=== PATIENT | female | born 1970 | race Caucasian/White ===

== ENCOUNTER 2018-06-28 04:18 | Emergency (ER) | payer MEDICAID ==
[~2018-06-28] VITALS: Ht 172.7 cm; Wt 77.0 kg
[2018-06-28] MEDS ORDERED: ONDANSETRON HCL 4MG/2ML INJ IV STA ×2 (06:45→07:47)
[2018-06-28] MEDS ORDERED: SODIUM CHLORIDE 0.9% 1,000 ML IV ONE (06:45)
[2018-06-28] MEDS ORDERED: KETOROLAC 30MG/ML VIAL IV STA (06:45)
[2018-06-28 07:00] LABS: HEMATOCRIT. 42.9 % (36.0-48.0); HEMOGLOBIN. 14.7 g/dL (12.0-16.0); MEAN CORPUSCULAR HEMOGLOBIN 29.6 pg (28.0-32.0); MEAN CORPUSCULAR VOLUME 86.4 fL (81.0-99.0); MEAN PLATELET VOLUME 9.3 fl (7.4-10.4); PLATELET 288 x1000/uL (130-400); RED BLOOD CELL COUNT 4.97 mill/uL (4.2-5.4); RED CELL DISTRIBUTION WIDTH 12.9 % (11.6-14.6)
[2018-06-28 07:04] LABS: CHLORIDE 101 mEq/L (98-107)
[2018-06-28 07:05] LABS: PROTHROMBIN TIME 10.2 sec (9.6-11.0)
[2018-06-28 07:07] LABS: ETHANOL BLOOD < 10 mg/dL
[2018-06-28 07:39] LABS: PLATELET ESTIMATE NORMAL
[2018-06-28 07:57] LABS: HCG SCREEN NEGATIVE
[2018-06-28] MEDS ORDERED: POTASSIUM CHLORIDE 20MEQ TABLET SR PO ONE (08:00)
[2018-06-28] MEDS ORDERED: KCL 10MEQ/50ML PREMIX 50 ML IV ONE (08:00)
[2018-06-28 08:03] LABS: CLARITY URINE CLEAR (CLEAR); COLOR URINE YELLOW (YELLOW); KETONES URINE TRACE (NEGATIVE); LEUKOCYTE ESTERASE URINE NEGATIVE (NEGATIVE); NITRITE URINE NEGATIVE (NEGATIVE); OCCULT BLOOD URINE NEGATIVE (NEGATIVE); PROTEIN URINE NEGATIVE (NEGATIVE); UROBILINOGEN URINE 0.2 E.U./dL (0.2-1.0)
[2018-06-28] MEDS ORDERED: IOHEXOL-300 100 ML BOTTLE ONE (10:36)
[2018-06-28 11:17] LABS: CHLORIDE 105 mEq/L (98-107)
[2018-06-28 14:47] VITALS: BP 120/83
[2018-07-03 05:21] LABS: CHLAMYDIA TRACHOMATIS NAA Negative (Negative); NEISSERIA GONORRHOEAE NAA Negative (Negative)
== END 2018-06-28 14:47 | disposition home or self-care (01) ==
LOC: ER 04:18
DX: R10.31 Right lower quadrant pain (principal); I10 Essential (primary) hypertension
CPT/HCPCS: 36415; 71045; 74177; 76830; 76856; 80048; 80053; 80320; 81003; 81025; 83690; 83735; 84703; 85025; 85610; 87040; 87086; 87210; 87491; 87591; 93005; 96361; 96365; 96375; 96376; 99284; J1885; J2405; J3480; J7030; Q9967; Z7610; 96374; G0480

== ENCOUNTER 2019-05-01 22:24 | Inpatient (IN) | payer MEDICAID, OTHER ==
[~2019-05-01] VITALS: Ht 167.6 cm; Wt 90.7 kg
[2019-05-01] MEDS ORDERED: SODIUM CHLORIDE 0.9% 500 ML IV ONE (23:36)
[2019-05-02 00:06] LABS: CLARITY URINE CLEAR (CLEAR); COLOR URINE YELLOW (YELLOW); KETONES URINE NEGATIVE (NEGATIVE); LEUKOCYTE ESTERASE URINE NEGATIVE (NEGATIVE); NITRITE URINE NEGATIVE (NEGATIVE); OCCULT BLOOD URINE NEGATIVE (NEGATIVE); PH URINE 7.5 (4.5-8.0); PROTEIN URINE NEGATIVE (NEGATIVE); SPECIFIC GRAVITY URINE 1.014 (1.005-1.030); UROBILINOGEN URINE 0.2 E.U./dL (0.2-1.0)
[2019-05-02 00:12] LABS: BASOPHILS % 0.9 % (0.0-2.0); EOSINOPHILS % 3.1 % (0.0-5.0); HEMATOCRIT. 43.1 % (36.0-48.0); HEMOGLOBIN. 14.8 g/dL (12.0-16.0); LYMPHOCYTES % 18.1 % (20.0-50.0); MEAN CORPUSCULAR HEMOGLOBIN 30.4 pg (28.0-32.0); MEAN CORPUSCULAR VOLUME 88.7 fL (81.0-99.0); MEAN PLATELET VOLUME 9.3 fl (7.4-10.4); MONOCYTES % 5.8 % (2.0-8.0); NEUTROPHILS % 72.1 % (40.0-76.0); PLATELET 312 x1000/uL (130-400); RED BLOOD CELL COUNT 4.86 mill/uL (4.2-5.4); RED CELL DISTRIBUTION WIDTH 12.9 % (11.6-14.6)
[2019-05-02 00:18] LABS: CHLORIDE 101 mEq/L (98-107)
[2019-05-02 00:22] LABS: ETHANOL BLOOD < 10 mg/dL
[2019-05-02 00:34] LABS: *BARBITURATES SCREEN URINE NEGATIVE (NEGATIVE)
[2019-05-02 00:35] LABS: *AMPHETAMINES SCREEN URINE NEGATIVE (NEGATIVE); *BENZODIAZEPINES SCREEN URINE NEGATIVE (NEGATIVE); *COCAINE SCREEN URINE NEGATIVE (NEGATIVE); METHADONE URINE SCREEN NEGATIVE (NEGATIVE)
[2019-05-02 00:36] LABS: CANNABINOID URINE SCREEN NEGATIVE (NEGATIVE); PHENCYCLIDINE URINE SCREEN NEGATIVE (NEGATIVE)
[2019-05-02] MEDS ORDERED: POTASSIUM CHLORIDE 20MEQ TABLET SR PO ONE (01:30)
[2019-05-02 05:41] VITALS: BP 165/105
[2019-05-02 05:44] VITALS: BP 165/106
[2019-05-02] MEDS ORDERED: AMLO10TA80 PO (05:53)
[2019-05-02 08:00] VITALS: BP 142/95
[2019-05-02] MEDS ORDERED: MORPHINE SULFATE 2 MG/ML CPJ (NOT FOR IM USE) IV PRN (08:15)
[2019-05-02] MEDS ORDERED: MAGNESIUM/ALUMINUM HYDROXIDE/SIMETHICONE 30ML UDC PO PRN (08:15)
[2019-05-02] MEDS ORDERED: HYDROCODONE/ACETAMINOPHEN 10/325MG TABLET PO PRN (08:15)
[2019-05-02] MEDS ORDERED: HYDRALAZINE 20MG/ML VIAL IV PRN (08:15)
[2019-05-02] MEDS ORDERED: GUAIFENESIN 200MG/10ML SUGAR FREE UDC PO PRN (08:15)
[2019-05-02] MEDS ORDERED: ONDANSETRON HCL 4MG/2ML INJ IV PRN (08:15)
[2019-05-02] MEDS ORDERED: IPRATROPIUM/ALBUTEROL 0.5-3(2.5)MG/3ML NEB HHN PRN (08:15)
[2019-05-02] MEDS ORDERED: ACETAMINOPHEN 325MG TABLET PO PRN (08:15)
[2019-05-02] MEDS ORDERED: DOCUSATE SODIUM 100MG CAPSULE PO PRN (08:15)
[2019-05-02] MEDS ORDERED: LORAZEPAM 2MG/ML CPJ IV PRN (08:15)
[2019-05-02] MEDS ORDERED: DIPHENHYDRAMINE 50MG/ML VIAL IV PRN (08:15)
[2019-05-02 11:22] LABS: T4 FREE 1.01 ng/dL (0.76-1.46)
[2019-05-02 11:46] VITALS: BP 142/94
[2019-05-02] MEDS: SODIUM CHLORIDE 0.9% INJ 3ML FLUSH IVF SCH ×2 (14:13→21:13)
[2019-05-02] MEDS: ENOXAPARIN 40MG/0.4ML SYR SUBCUT SCH (14:14)
[2019-05-02] MEDS ORDERED: IOHEXOL-350 100 ML BOTTLE ONE (15:21)
[2019-05-02 16:00] VITALS: BP 133/89
[2019-05-02 16:11] LABS: CREATINE KINASE 77 IU/L (26-192)
[2019-05-02 16:14] LABS: CREATINE KINASE MB FRACTION 1.1 ng/mL (0.5-3.6)
[2019-05-02 20:00] VITALS: BP 160/107
[2019-05-02] MEDS: CLONIDINE 0.1MG TABLET PO PRN (20:25)
[2019-05-03] VITALS: BP 118/81
[2019-05-03 00:27] LABS: CREATINE KINASE 63 IU/L (26-192)
[2019-05-03 00:28] LABS: CREATINE KINASE MB FRACTION < 1.0 ng/mL (0.5-3.6)
[2019-05-03 04:00] VITALS: BP 126/79
[2019-05-03] MEDS: SODIUM CHLORIDE 0.9% INJ 3ML FLUSH IVF SCH (05:55)
[2019-05-03 07:20] LABS: EOSINOPHILS % 5.7 % (0.0-5.0); HEMATOCRIT. 41.1 % (36.0-48.0); HEMOGLOBIN. 14.2 g/dL (12.0-16.0); LYMPHOCYTES % 31.6 % (20.0-50.0); MEAN CORPUSCULAR HEMOGLOBIN 30.3 pg (28.0-32.0); MEAN CORPUSCULAR VOLUME 88.1 fL (81.0-99.0); MEAN PLATELET VOLUME 9.8 fl (7.4-10.4); MONOCYTES % 5.5 % (2.0-8.0); NEUTROPHILS % 56.2 % (40.0-76.0); PLATELET 269 x1000/uL (130-400); RED BLOOD CELL COUNT 4.67 mill/uL (4.2-5.4); RED CELL DISTRIBUTION WIDTH 12.7 % (11.6-14.6)
[2019-05-03 07:38] LABS: CHLORIDE 104 mEq/L (98-107)
[2019-05-03 08:00] VITALS: BP 150/88
[2019-05-03] MEDS ORDERED: POTASSIUM CHLORIDE 20MEQ TABLET SR PO SCH (09:00)
[2019-05-03] MEDS: ENOXAPARIN 40MG/0.4ML SYR SUBCUT SCH (09:52)
[2019-05-03] MEDS: CLONIDINE 0.1MG TABLET PO PRN (10:10)
[2019-05-03 13:00] VITALS: BP 120/82
[2019-05-05 17:58] LABS: OPIATES URINE SCREEN NEGATIVE (NEGATIVE)
== END 2019-05-03 14:40 | disposition home or self-care (01) | DRG 204 ==
LOC: ER 22:24 → 6WST 05-02 01:58 → EDBEDREQTM 05-02 02:02 → EDBEDREQ 05-02 02:02 → ENRESERV 05-02 03:53
PROVIDERS: ADMIT Internal Medicine; ATTEND Internal Medicine
DX: R55 Syncope and collapse (principal); R65.10 Systemic inflammatory response syndrome (SIRS) of non-infectious origin without acute organ dysfunction; I11.9 Hypertensive heart disease without heart failure; E87.6 Hypokalemia; D72.829 Elevated white blood cell count, unspecified
CPT/HCPCS: 36415; 71045; 71275; 80053; 80061; 80305; 80320; 81003; 82550; 82553; 83036; 83880; 84439; 84443; 84484; 85025; 85379; 93005; 93306; 93970; 99285; J1650; J7040; Q9967; G0480